=== PATIENT | male | born 1960 | race Caucasian/White ===

== ENCOUNTER 2021-06-26 19:37 | Emergency (ER) | payer OTHER ==
[2021-06-26 19:57] VITALS: BP 100/60; PULSE 70; TEMP 98.6; BMI 15.7
[2021-06-26 21:56] LABS: CHLORIDE 107 mmol/L (98-107); SODIUM 140 mmol/L (136-145)
[2021-06-26 21:58] LABS: CALCIUM 8.1 mg/dL (8.5-10.1)
[2021-06-26 21:59] LABS: ALBUMIN 2.9 g/dl (3.4-5.0); ANION GAP 7 MMOL/L (8-16); BLOOD UREA NITROGEN 19.7 mg/dL (7-18); CO2 26 mmol/L (21-32); LIPASE 233 U/L (73-393)
[2021-06-26 22:02] LABS: CREATININE 0.7 mg/dL (0.55-1.3); SGOT/AST 28 U/L (15-37); SGPT/ALT 23 U/L (13-61)
[2021-06-26 22:03] LABS: BILIRUBIN,TOTAL 0.2 mg/dL (0.2-1)
[2021-06-26 22:04] LABS: TOT PROT 7.7 g/dl (6.4-8.2)
[2021-06-26 22:05] LABS: ALK PHOS 74 U/L (45-117)
[2021-06-26 22:43] LABS: GLUCOSE,RANDOM 109 mg/dL (74-106)
== END 2021-06-26 22:46 | disposition home or self-care (01) ==
LOC: JER 19:37
DX: R10.9 Unspecified abdominal pain (principal)
CPT/HCPCS: 36415; 71046-TC-FY; 80053; 82550; 83690; 84484; 93005; 93010; 99285-25